=== PATIENT | female | born 1995 | race Caucasian/White ===

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

== ENCOUNTER 2017-01-29 08:19 | Emergency (ER) | payer BC ==
[2017-01-29 08:41] VITALS: BP 109/61
--- NOTE | 2017-01-29 09:00 | UC ---
Ear Complaint HPI - HPI Summary HPI Summary: RIGHT EAR PAIN X 2 DAYS NO FEVER , NO CHILLS, NO NASAL CONGESTION OR COUGH - History of Current Complaint Chief Complaint: UCEar Stated Complaint: RIGHT EAR COMPLAINT ACHY FEVER Time Seen by Provider: 01/29/17 08:47 Hx Obtained From: Patient Hx Last Menstrual Period: 01/14/17 Onset/Duration: Gradual Onset, Lasting Days - 2, Still Present Severity Currently: Moderate Associated Signs/Symptoms: Negative: Discharge, Hearing Loss, Foreign Body Sensation, Trauma to Ear, Swelling @, URI Symptoms - Allergies/Home Medications Allergies/Adverse Reactions: Allergies Allergy/AdvReac Type Severity Reaction Status Date / Time Amoxicillin [From Augmentin] Allergy Unknown Verified 01/29/17 08:36 Reaction Details Cefprozil [From Cefzil] Allergy Nausea Verified 01/29/17 08:36 Clavulanic Acid Allergy Nausea Verified 01/29/17 08:36 [From Augmentin] Sertraline [From Zoloft] Allergy See Comment Verified 01/29/17 08:36 PMH/Surg Hx/FS Hx/Imm Hx Endocrine History Of: Denies: Diabetes, Thyroid Disease Cardiovascular History Of: Denies: Cardiac Disorders Respiratory History Of: Reports: Asthma - r/t exercise Psychological History Of: Reports: Anxiety - Surgical History Surgical History: None - Family History Known Family History: Negative: Diabetes Family History: no reported cardiovascular issues in family lineage - Social History Alcohol Use: None Substance Use Type: None Smoking Status (MU): Never Smoked Tobacco - Immunization History Most Recent Influenza Vaccination: NONE Most Recent Tetanus Shot: UTD Most Recent Pneumonia Vaccination: NONE Vaccination Up to Date: Yes Review of Systems Constitutional: Negative Skin: Negative Eyes: Negative ENT: Ear Ache - RIGHT Respiratory: Negative Cardiovascular: Negative All Other Systems Reviewed And Are Negative: Yes Physical Exam Triage Information Reviewed: Yes Appearance: Well-Appearing, No Pain Distress, Well-Nourished Vital Signs: Initial Vital Signs Temp 97.7 F 01/29/17 08:36 Pulse 100 01/29/17 08:36 Resp 16 01/29/17 08:36 BP 109/61 01/29/17 08:36 Pulse Ox 98 01/29/17 08:36 Vital Signs Reviewed: Yes Eyes: Positive: Conjunctiva Clear ENT: Positive: Normal ENT inspection, Hearing grossly normal, Pharynx normal, TMs normal. Negative: Pharyngeal erythema, Nasal congestion, Nasal drainage, TM bulging, TM dull, TM red Neck exam: Normal Neck: Positive: Supple, Nontender, No Lymphadenopathy Respiratory Exam: Normal Respiratory: Positive: Chest non-tender, Lungs clear, Normal breath sounds Cardiovascular: Positive: RRR, No Murmur, Pulses Normal Ear Complaint Course/Dx - Differential Dx/Diagnosis Provider Diagnoses: OTALGIA RIGHT Discharge - Discharge Plan Condition: Stable Disposition: HOME Patient Education Materials: Earache (ED) Referrals: Olga Masterson MD [Primary Care Provider] - If Needed
== END 2017-01-29 09:04 | disposition home or self-care (01) ==
LOC: UCCORT 08:19
DX: H92.01 Otalgia, right ear (principal); Z88.1 Allergy status to other antibiotic agents; J45.909 Unspecified asthma, uncomplicated; F41.9 Anxiety disorder, unspecified
CPT/HCPCS: 99211; G0463

== ENCOUNTER 2017-03-10 09:22 | Emergency (ER) | payer BC ==
[2017-03-10 09:33] VITALS: BP 113/63
--- NOTE | 2017-03-10 09:47 | UC ---
Throat Pain/Nasal Ander HPI - HPI Summary HPI Summary: Sore throat for 1 day and right ear pain for three days. no fever or cough. - History of Current Complaint Chief Complaint: UCGeneralIllness Stated Complaint: SORE THROAT,EAR PAIN Time Seen by Provider: 03/10/17 09:32 Hx Last Menstrual Period: 02/04/17 Onset/Duration: Gradual Onset Severity: Moderate Cough: None Associated Signs & Symptoms: Positive: Dysphagia. Negative: Wheezing, Hoarseness, Sinus Discomfort, Nasal Discharge, Fever, Vomiting, Rash - Epiglottits Risk Factors Epiglottis Risk Factors: Negative - Allergies/Home Medications Allergies/Adverse Reactions: Allergies Allergy/AdvReac Type Severity Reaction Status Date / Time Amoxicillin [From Augmentin] Allergy Unknown Verified 03/10/17 09:28 Reaction Details Cefprozil [From Cefzil] Allergy Nausea Verified 03/10/17 09:28 Clavulanic Acid Allergy Nausea Verified 03/10/17 09:28 [From Augmentin] Sertraline [From Zoloft] Allergy See Comment Verified 03/10/17 09:28 Home Medications: Home Medications Albuterol HFA INHALER* [Ventolin HFA Inhaler*] 1 - 2 puff INH Q4H PRN 03/10/17 [ History Confirmed 03/10/17] Ibuprofen TAB* [Advil TAB*] 400 mg PO Q6H PRN 03/10/17 [History Confirmed ] Norgestimate-Eth Estradiol(NF) [Ortho Tri-Cyclen (NF)] 1 tab PO DAILY 03/10/17 [ History Confirmed 03/10/17] PMH/Surg Hx/FS Hx/Imm Hx Previously Healthy: No - excersize induced asthma. - Surgical History Surgical History: None - Family History Known Family History: Negative: Diabetes Family History: no reported cardiovascular issues in family lineage - Social History Alcohol Use: None Substance Use Type: None Smoking Status (MU): Never Smoked Tobacco - Immunization History Most Recent Influenza Vaccination: NONE Most Recent Tetanus Shot: UTD Most Recent Pneumonia Vaccination: NONE Vaccination Up to Date: Yes Review of Systems All Other Systems Reviewed And Are Negative: Yes Physical Exam Triage Information Reviewed: Yes Appearance: Well-Appearing, No Pain Distress, Well-Nourished Vital Signs: Initial Vital Signs Temp 99.6 F 06/25/17 09:26 Pulse 102 03/10/17 09:26 Resp 16 03/10/17 09:26 BP 113/63 03/10/17 09:26 Pulse Ox 100 03/10/17 09:26 Vital Signs Reviewed: Yes Eye Exam: Normal ENT Exam: Other - right ear felt dyeing machine tender with speculum tenderness. ENT: Positive: Pharyngeal erythema, TMs normal. Negative: TM bulging, TM dull, Tonsillar swelling, Tonsillar exudate, Trismus Neck exam: Normal Respiratory Exam: Normal Cardiovascular Exam: Normal Abdominal Exam: Normal Musculoskeletal Exam: Normal Neurological Exam: Normal Psychological Exam: Normal Skin Exam: Normal Throat Pain/Nasal Course/Dx - Differential Dx/Diagnosis Provider Diagnoses: head cold. viral uri. Discharge - Discharge Plan Condition: Good Disposition: HOME Patient Education Materials: Upper Respiratory Infection (ED) Referrals: Olga Masterson MD [Primary Care Provider] - If Needed
== END 2017-03-10 09:51 | disposition home or self-care (01) ==
LOC: UCCORT 09:22
DX: J00 Acute nasopharyngitis [common cold] (principal); J06.9 Acute upper respiratory infection, unspecified; J45.990 Exercise induced bronchospasm
CPT/HCPCS: 87651; 99211; G0463

== ENCOUNTER 2018-01-31 13:06 | Emergency (ER) | payer BC ==
[2018-01-31 14:43] VITALS: BP 116/60
--- NOTE | 2018-01-31 14:59 | ED ---
Throat Pain/Nasal Congestion - HPI Summary HPI Summary: 22 yr old female with the complaint of right ear pain. Onset of symptoms was almost a week ago, and right ear only. No runny nose, post nasal drip, coughing sore throat. No fever or chills. No other complaints. - History of Current Complaint Chief Complaint: UCEar Time Seen by Provider: 01/31/18 14:46 - Allergies/Home Medications Allergies/Adverse Reactions: Allergies Allergy/AdvReac Type Severity Reaction Status Date / Time amoxicillin Allergy Unknown Verified 01/31/18 14:46 Reaction Details cefprozil Allergy Nausea Verified 01/31/18 14:46 clavulanic acid Allergy Nausea Verified 01/31/18 14:47 [From Augmentin] sertraline Allergy See Comment Verified 01/31/18 14:46 PMH/Surg Hx/FS Hx/Imm Hx Endocrine/Hematology History: Denies: Hx Diabetes, Hx Thyroid Disease Respiratory History: Reports: Hx Asthma EENT History: Reports: Other - prior otitis media Psychiatric History: Reports: Hx Anxiety Infectious Disease History: No Infectious Disease History: Denies: Traveled Outside the [place] in Last 30 Days - Family History Known Family History: Positive: None Negative: Diabetes Family History: no reported cardiovascular issues in family lineage - Social History Occupation: Student Lives: With Family Alcohol Use: None Substance Use Type: Reports: None Smoking Status (MU): Never Smoked Tobacco Review of Systems Constitutional: Negative Positive: Ear Ache All Other Systems Reviewed And Are Negative: Yes Physical Exam Triage Information Reviewed: Yes Vital Signs On Initial Exam: Initial Vitals Temp Pulse Resp BP Pulse Ox 98.6 F 81 16 116/60 99 01/31/18 14:40 01/31/18 14:40 01/31/18 14:40 01/31/18 14:40 01/31/18 14:40 Vital Signs Reviewed: Yes Appearance: Positive: Well-Appearing, No Pain Distress Skin: Positive: Warm, Skin Color Reflects Adequate Perfusion Head/Face: Positive: Normal Head/Face Inspection Eyes: Positive: EOMI ENT: Positive: TM red - right with effusion, Uvula midline. Negative: Muffled voice, Hoarse voice Neck: Positive: Supple, Nontender Respiratory/Lung Sounds: Positive: Clear to Auscultation, Breath Sounds Present Cardiovascular: Positive: RRR. Negative: Murmur Abdomen Description: Positive: Nontender Musculoskeletal: Positive: Strength/ROM Intact Neurological: Positive: Sensory/Motor Intact, Alert, Oriented to Person Place, Time, CN Intact II-III Psychiatric: Positive: Normal - Umesh Coma Scale Best Eye Response: 4 - Spontaneous Best Motor Response: 6 - Obeys Commands Best Verbal Response: 5 - Oriented Coma Scale Total: 15 Diagnostics - Vital Signs Vital Signs Temp Pulse Resp BP Pulse Ox 01/31/18 14:40 98.6 F 81 16 116/60 99 - Laboratory Lab Statement: Any lab studies that have been ordered have been reviewed, and results considered in the medical decision making process. EENT Course/Dx - Course Course Of Treatment: 22 yr old with otitis media. Rx with zithromax. DC home good condition. - Diagnoses Provider Diagnoses: Otitis media Discharge - Sign-Out/Discharge Documenting (check all that apply): Discharge/Admit/Transfer - Discharge Plan Condition: Good Disposition: HOME Prescriptions: Azithromycin TAB* [Zithromax TAB (Z-BROWN) 250 mg #6 tabs] 2 tab PO .TODAY, THEN 1 DAILY #1 brown Patient Education Materials: Ear Infection (ED) Referrals: Asya Paulino NP [Primary Care Provider] - 2 Days - Billing Disposition and Condition Condition: GOOD Disposition: HOME
== END 2018-01-31 15:05 | disposition home or self-care (01) ==
LOC: UCCORT 13:06
DX: H66.91 Otitis media, unspecified, right ear (principal); Z88.3 Allergy status to other anti-infective agents
CPT/HCPCS: 99212; G0463

== ENCOUNTER 2019-01-24 17:54 | Emergency (ER) | payer BC ==
[2019-01-24 18:15] VITALS: BP 124/63
--- NOTE | 2019-01-24 18:34 | UC ---
Throat Pain/Nasal Ander HPI - HPI Summary HPI Summary: 23-year-old woman comes in with a chief complaint of upper respiratory tract infection symptoms for 3 days. The green rhinorrhea she has sinus pressure she has mild sore throat. She does have some chest congestion. She has a history of asthma she's not having any wheezing. She did take a decongestant which came she does feel little bit better. - History of Current Complaint Chief Complaint: UCGeneralIllness Stated Complaint: CONGESTION,HEADACHE,COUGH Time Seen by Provider: 01/24/19 18:26 Hx Last Menstrual Period: January 24 Pain Intensity: 2 - Allergies/Home Medications Allergies/Adverse Reactions: Allergies Allergy/AdvReac Type Severity Reaction Status Date / Time amoxicillin Allergy Unknown Verified 01/24/19 18:15 Reaction Details cefprozil Allergy Nausea Verified 01/24/19 18:15 clavulanic acid Allergy Nausea Verified 01/24/19 18:15 [From Augmentin] sertraline Allergy See Comment Verified 01/24/19 18:15 PMH/Surg Hx/FS Hx/Imm Hx Previously Healthy: Yes Respiratory History: Asthma - Surgical History Surgical History: None - Family History Known Family History: Positive: None Negative: Diabetes Family History: no reported cardiovascular issues in family lineage - Social History Alcohol Use: Rare Substance Use Type: None Smoking Status (MU): Never Smoked Tobacco - Immunization History Most Recent Influenza Vaccination: NONE Most Recent Tetanus Shot: UTD Most Recent Pneumonia Vaccination: NONE Vaccination Up to Date: Yes Review of Systems All Other Systems Reviewed And Are Negative: Yes Constitutional: Positive: Negative Skin: Positive: Negative Eyes: Positive: Negative ENT: Positive: Sore Throat, Nasal Discharge, Sinus Congestion, Sinus Pain/ Tenderness Respiratory: Positive: Other - SEE HPI Cardiovascular: Positive: Negative Gastrointestinal: Positive: Negative Motor: Positive: Negative Neurovascular: Positive: Negative Musculoskeletal: Positive: Negative Neurological: Positive: Negative Psychological: Positive: Negative Is Patient Immunocompromised?: No Physical Exam Triage Information Reviewed: Yes Appearance: Well-Appearing, No Pain Distress, Well-Nourished Vital Signs: Initial Vital Signs Temp 99.7 F 01/24/19 18:08 Pulse 89 01/24/19 18:08 Resp 18 01/24/19 18:08 BP 124/63 01/24/19 18:08 Pulse Ox 99 01/24/19 18:08 Vital Signs Reviewed: Yes Eye Exam: Normal Eyes: Positive: Conjunctiva Clear ENT: Positive: Pharyngeal erythema, Nasal congestion, Nasal drainage, TMs normal Neck exam: Normal Neck: Positive: Supple Respiratory: Positive: Lungs clear, Normal breath sounds, No respiratory distress Cardiovascular: Positive: RRR Musculoskeletal Exam: Normal Musculoskeletal: Positive: Strength Intact, ROM Intact Neurological: Positive: Alert, Muscle Tone Normal Psychological Exam: Normal Psychological: Positive: Age Appropriate Behavior Skin Exam: Normal Throat Pain/Nasal Course/Dx - Course Course Of Treatment: DISCUSSED VIRAL VERSES BACTERIAL INFECTION AND THE ROLE OF ANTIBIOTICS. THE PATIENT PREFERS TO BE ON ANTIBIOTICS AT THIS TIME. - Differential Dx/Diagnosis Provider Diagnosis: Upper respiratory infection Discharge - Sign-Out/Discharge Documenting (check all that apply): Patient Departure All imaging exams completed and their final reports reviewed: No Studies - Discharge Plan Condition: Stable Disposition: HOME Prescriptions: Azithromyxin BROWN (NF) [Z-Brown (Zithromax) 250 mg tabs #6] 2 tab PO .TODAY, THEN 1 DAILY #6 tab Patient Education Materials: Upper Respiratory Infection (ED) Referrals: Asya Paulino NP [Primary Care Provider] - Additional Instructions: FOLLOW UP WITH YOUR DOCTOR IF NOT COMPLETELY IMPROVED. GET RECHECKED SOONER IF YOUR CONDITION WORSENS OR ANY QUESTIONS OR CONCERNS. - Billing Disposition and Condition Condition: STABLE Disposition: Home
== END 2019-01-24 18:39 | disposition home or self-care (01) ==
LOC: UCCORT 17:54
DX: J06.9 Acute upper respiratory infection, unspecified (principal); Z88.0 Allergy status to penicillin
CPT/HCPCS: 99212; G0463

== ENCOUNTER 2019-08-20 07:39 | Emergency (ER) | payer BC ==
[2019-08-20 07:56] VITALS: BP 114/68
--- NOTE | 2019-08-20 08:43 | ED ---
Throat Pain/Nasal Congestion - HPI Summary HPI Summary: 23 yr old with the fourth day of sore throat, stomach ache and fever, and chills. She does not have a cough or runny nose. She returned from journalism internship recently. No drooling, no stridor. No other complaints. - History of Current Complaint Chief Complaint: UCRespiratory Time Seen by Provider: 08/20/19 08:03 - Allergies/Home Medications Allergies/Adverse Reactions: Allergies Allergy/AdvReac Type Severity Reaction Status Date / Time amoxicillin Allergy Unknown Verified 08/20/19 07:51 Reaction Details cefprozil Allergy Nausea Verified 08/20/19 07:51 clavulanic acid Allergy Nausea Verified 08/20/19 07:51 [From Augmentin] sertraline Allergy See Comment Verified 08/20/19 07:51 PMH/Surg Hx/FS Hx/Imm Hx Endocrine/Hematology History: Denies: Hx Diabetes, Hx Thyroid Disease Cardiovascular History: Denies: Hx Hypertension Respiratory History: Reports: Hx Asthma Denies: Hx Chronic Obstructive Pulmonary Disease (COPD), Other Respiratory Problems/Disorders GI History: Denies: Hx Ulcer Psychiatric History: Reports: Hx Anxiety Infectious Disease History: No Infectious Disease History: Denies: Hx Hepatitis, Hx Human Immunodeficiency Virus (HIV), Traveled Outside the [place] in Last 30 Days - Family History Known Family History: Positive: None Negative: Diabetes Family History: no reported cardiovascular issues in family lineage - Social History Occupation: Unemployed Alcohol Use: Rare Substance Use Type: Reports: None Smoking Status (MU): Never Smoked Tobacco Review of Systems Positive: Fever Positive: Sore Throat All Other Systems Reviewed And Are Negative: Yes Physical Exam Triage Information Reviewed: Yes Vital Signs On Initial Exam: Initial Vitals Temp Pulse Resp BP Pulse Ox 98.3 F 104 16 114/68 98 08/20/19 07:52 08/20/19 07:52 08/20/19 07:52 08/20/19 07:52 08/20/19 07:52 Vital Signs Reviewed: Yes Appearance: Positive: Well-Appearing, No Pain Distress Skin: Positive: Warm, Skin Color Reflects Adequate Perfusion Head/Face: Positive: Normal Head/Face Inspection Eyes: Positive: EOMI, ALESSANDRO ENT: Positive: Pharyngeal erythema, TMs normal. Negative: Nasal congestion, Nasal drainage Neck: Positive: Nontender Respiratory/Lung Sounds: Positive: Clear to Auscultation, Breath Sounds Present Cardiovascular: Positive: RRR. Negative: Murmur Abdomen Description: Positive: Nontender. Negative: Distended Musculoskeletal: Positive: Strength/ROM Intact Neurological: Positive: Sensory/Motor Intact, Alert, Oriented to Person Place, Time, CN Intact II-III, Normal Gait, Speech Normal Diagnostics - Vital Signs Vital Signs Temp Pulse Resp BP Pulse Ox 08/20/19 07:52 98.3 F 104 16 114/68 98 - Laboratory Lab Results: Lab Results 08/20/19 Range/Units 08:10 Group A Strep Rapid Negative (Negative) Lab Statement: Any lab studies that have been ordered have been reviewed, and results considered in the medical decision making process. EENT Course/Dx - Course Course Of Treatment: 23 yr old with pharyngitis. Sending throat culture. - Diagnoses Provider Diagnoses: Pharyngitis Discharge ED - Sign-Out/Discharge Documenting (check all that apply): Patient Departure All imaging exams completed and their final reports reviewed: No Studies - Discharge Plan Condition: Good Disposition: HOME Patient Education Materials: Pharyngitis (ED) Referrals: Asya Paulino NP [Primary Care Provider] - - Billing Disposition and Condition Condition: GOOD Disposition: Home
--- NOTE | 2019-08-23 07:03 | UC ---
- Progress Note Progress Note: Please notify patient her throat culture was negative. Course/Dx - Diagnoses Provider Diagnoses: Pharyngitis Discharge ED - Sign-Out/Discharge Documenting (check all that apply): Post-Discharge Follow Up All imaging exams completed and their final reports reviewed: No Studies - Discharge Plan Condition: Good Disposition: HOME Patient Education Materials: Pharyngitis (ED) Referrals: Asya Paulino NP [Primary Care Provider] - - Billing Disposition and Condition Condition: GOOD Disposition: Home
== END 2019-08-20 08:48 | disposition home or self-care (01) ==
LOC: UCCORT 07:39
DX: J02.9 Acute pharyngitis, unspecified (principal); J45.909 Unspecified asthma, uncomplicated; Z88.0 Allergy status to penicillin; Z88.1 Allergy status to other antibiotic agents; Z88.8 Allergy status to other drugs, medicaments and biological substances
CPT/HCPCS: 87070; 87651; 99211; G0463

== ENCOUNTER 2019-11-25 09:52 | Emergency (ER) | payer BC ==
[2019-11-25 11:33] VITALS: BP 104/68
--- NOTE | 2019-11-25 12:12 | UC ---
Throat Pain/Nasal Ander HPI - HPI Summary HPI Summary: Pt presents with c/o ST, body aches and subjective fever X 3 days. - History of Current Complaint Chief Complaint: UCRespiratory Stated Complaint: SORE THROAT HEADACHE Time Seen by Provider: 11/25/19 11:41 Hx Obtained From: Patient Hx Last Menstrual Period: 10/29/19 ?: No Onset/Duration: Sudden Onset, Lasting Days, Still Present Severity: Moderate Pain Intensity: 7 Cough: None Associated Signs & Symptoms: Positive: Dysphagia - Epiglottits Risk Factors Epiglottis Risk Factors: Sudden Onset - Allergies/Home Medications Allergies/Adverse Reactions: Allergies Allergy/AdvReac Type Severity Reaction Status Date / Time amoxicillin Allergy Unknown Verified 11/25/19 11:23 Reaction Details cefprozil Allergy Nausea Verified 11/25/19 11:23 clavulanic acid Allergy Nausea Verified 11/25/19 11:23 [From Augmentin] sertraline Allergy See Comment Verified 11/25/19 11:23 Home Medications: Home Medications FLUoxetine* [Prozac*] 10 mg PO DAILY 11/09/16 [History Confirmed 11/25/19] Albuterol HFA INHALER* [Ventolin HFA Inhaler*] 1 - 2 puff INH Q4H PRN 03/10/17 [ History Confirmed 11/25/19] Ibuprofen TAB* [Advil TAB*] 200 mg PO Q6H PRN 03/10/17 [History Confirmed ] Norgestimate-Eth Estradiol(NF) [Ortho Tri-Cyclen (NF)] 1 tab PO DAILY 03/10/17 [ History Confirmed 11/25/19] Azithromycin TAB* [Zithromax TAB (Z-BROWN) 250 mg #6 tabs] 2 tab PO .TODAY, THEN 1 DAILY #1 brown 11/25/19 [Rx] Chlorphen/Phenyleph/Dm/Aspirin [[place] Plus C-C Tab Eff] 1 tab PO PRN 08/05 [History] predniSONE [Prednisone 20 MG TAB] 20 mg PO DAILY #4 tablet 11/25/19 [Rx] PMH/Surg Hx/FS Hx/Imm Hx Previously Healthy: Yes - Surgical History Surgical History: None - Family History Known Family History: Positive: None Negative: Diabetes Family History: no reported cardiovascular issues in family lineage - Social History Occupation: Employed Full-time Lives: With Family Alcohol Use: Occasionally Substance Use Type: None Smoking Status (MU): Never Smoked Tobacco Have You Smoked in the Last Year: No - Immunization History Most Recent Influenza Vaccination: NONE Most Recent Tetanus Shot: UTD Most Recent Pneumonia Vaccination: NONE Vaccination Up to Date: Yes Review of Systems All Other Systems Reviewed And Are Negative: Yes Constitutional: Positive: Fever, Chills Skin: Positive: Negative Eyes: Positive: Negative ENT: Positive: Sore Throat Respiratory: Positive: Negative Cardiovascular: Positive: Negative Gastrointestinal: Positive: Negative Genitourinary: Positive: Negative Motor: Positive: Negative Neurovascular: Positive: Negative Musculoskeletal: Positive: Myalgia Neurological/Mental Status: Positive: Negative Psychological: Positive: Negative Is Patient Immunocompromised?: No Physical Exam Triage Information Reviewed: Yes Appearance: Ill-Appearing Vital Signs: Initial Vital Signs Temp 98.8 F 11/25/19 11:25 Pulse 111 11/25/19 11:25 Resp 22 11/25/19 11:25 BP 104/68 11/25/19 11:25 Pulse Ox 98 11/25/19 11:25 Vital Signs Reviewed: Yes Eye Exam: Normal ENT: Positive: Tonsillar swelling, Tonsillar exudate Dental Exam: Normal Neck: Positive: Enlarged Nodes @ Respiratory Exam: Normal Cardiovascular Exam: Normal Musculoskeletal Exam: Normal Neurological Exam: Normal Psychological Exam: Normal Skin Exam: Normal Throat Pain/Nasal Course/Dx - Course Course Of Treatment: I offered mono testing and pt declined - Differential Dx/Diagnosis Differential Diagnosis/HQI/PQRI: Mononucleosis, Pharyngitis, Tonsillitis Provider Diagnosis: Tonsillitis with exudate Discharge ED - Sign-Out/Discharge Documenting (check all that apply): Patient Departure All imaging exams completed and their final reports reviewed: No Studies - Discharge Plan Condition: Stable Disposition: HOME Prescriptions: Azithromycin TAB* [Zithromax TAB (Z-BROWN) 250 mg #6 tabs] 2 tab PO .TODAY, THEN 1 DAILY #1 brown predniSONE [Prednisone 20 MG TAB] 20 mg PO DAILY #4 tablet Patient Education Materials: Tonsillitis (ED) Forms: *Work Release Referrals: Asya Paulino NP [Primary Care Provider] - If Needed - Billing Disposition and Condition Condition: STABLE Disposition: Home
== END 2019-11-25 12:20 | disposition home or self-care (01) ==
LOC: UCCORT 09:52
DX: J03.90 Acute tonsillitis, unspecified (principal); Z88.0 Allergy status to penicillin; Z88.1 Allergy status to other antibiotic agents; Z88.8 Allergy status to other drugs, medicaments and biological substances
CPT/HCPCS: 87651; 99212; G0463